=== PATIENT | male | born 1965 | race Caucasian/White ===

== ENCOUNTER 2024-06-08 11:08 | Emergency (ER) | payer OTHER, SELFPAY ==
--- NOTE | ~2024-06-08 | XR_ITS ---
EXAMINATION: XR ANKLE, RIGHT CLINICAL INFORMATION: fall. fracture? COMPARISON: None available. TECHNIQUE: AP, lateral, and mortise views of the right ankle. FINDINGS: No acute cortical disruption or malalignment. No lytic or blastic lesions. No gross joint effusion. No subcutaneous emphysema. XR/XR ankle RT 2V IMPRESSION: No acute fracture or dislocation. Electronically signed by: Hector Torres MD 06/08/2024 01:39 PM EST
--- NOTE | ~2024-06-08 | XR_ITS ---
EXAMINATION: XR FOOT, RIGHT CLINICAL INFORMATION: Foot fracture COMPARISON: None available. TECHNIQUE: AP, lateral, and oblique views of the right foot. FINDINGS: No acute cortical disruption or malalignment. No lytic or blastic lesions. No subcutaneous emphysema. Sclerosis and asymmetric joint space narrowing involving the first tarsometatarsal joint.. XR/XR foot RT 2V IMPRESSION: No acute fracture or dislocation. Electronically signed by: Hector Torres MD 06/08/2024 01:40 PM EST
[2024-06-08 11:11] VITALS: BP 152/80; PULSE 84; RESP 20; TEMP 36.7; O2SAT 98; BMI 26.8
--- NOTE | 2024-06-08 11:16 | ED.GENADULT ---
HPI - General Adult General Chief complaint: Extremity Injury, Lower Stated complaint: R foot injury Time Seen by Provider: 06/08/24 11:55 Source: patient and RN notes reviewed Mode of arrival: ambulatory Limitations: no limitations History of Present Illness ED Provider: Della Ratliff PA-C HPI narrative: This is a 59-year-old male who presents emergency department with complaints of right foot and ankle pain. Patient states that yesterday while he was running up concrete steps, his foot came down onto the step and he felt pain in his right foot. He denies falling to the ground. Did not hit his head. He is not on anticoagulation. He states that he is unable to fully bear weight on his right foot secondary to pain. Denies injuring this foot in the past. No medical problems. He took Tylenol this morning, which provided him with minimal relief. No other complaints or concerns at this time. MD complaint: Right foot pain Onset (ago): day(s) Location: lower extremity Radiation: non-radiation Severity: moderate Quality: aching Pain Consistency: constant Relieving factors: none Exacerbating factors: none Associated symptoms: denies other symptoms Related Data Previous Rx's ?Medication ?Instructions ?Recorded acetaminophen 500 mg tablet 1,000 mg (2 x 500 mg) PO Q8H PRN 06/08/24 (Tylenol Extra Strength) pain #30 tabs ibuprofen 600 mg tablet 600 mg PO Q6H PRN pain #30 tabs 06/08/24 Allergies Allergy/AdvReac Type Severity Reaction Status Date / Time No Known Allergies Allergy Verified 06/08/24 11:13 [No Known Allergies*] Review of Systems Review of Systems: Yes all other systems are reviewed and are negative [facility] Social History Social History Advance Directives: No Advance Directives Information Provided: No Do you have a plan to hurt others: No Plan Physical Exam ED Vital Signs: Vital Signs - 24 hr 06/08/24 11:11 06/08/24 12:35 06/08/24 13:31 Temperature 98.0 F 98.3 F Pulse Rate 84 68 74 Respiratory Rate 20 16 18 Blood Pressure 152/80 H 146/89 H 129/63 Pulse Oximetry 98 98 97 Oxygen Delivery Method Room Air Room Air Room Air 06/08/24 16:03 Temperature 0 F L Pulse Rate 74 Respiratory Rate 18 Blood Pressure 129/63 Pulse Oximetry 97 Oxygen Delivery Method Room Air BMI result Body Mass Index 26.8 Extrem Other: Right foot, with tenderness palpation along the 1st metatarsal. Right great toe with tenderness palpation, decreased range of motion secondary to pain. Capillary refill less than 2 seconds. Sensation intact. Dried blood noted to the distal phalange. Course Course Course Narrative: RmE: 59-year-old male presents to ED for right foot pain. Patient states yesterday he twisted on some concrete ever since then has had pain in right foot. Positive for right foot swelling. X-rays ordered. Reevaluation(s) Reevaluation #1: Xray without findings, however noted to have Sclerosis and asymmetric joint space narrowing involving the first tarsometatarsal joint. Given pain and inflammation in this area, I consulted ortho PA, Kolby Chow. Will place in short posterior splint, given crutches and advised to f/u with ortho outpatient. Pt has been sleeping in ED, pain managed and he appears comfortable, d/c on tylenol/motrin, given strict return precautions, stable for d.c. Medications Administered Discontinued Medications Generic Name Dose Route Start Last Admin Trade Name Freq PRN Reason Stop Dose Admin Diphtheria/Tetanus/Acell Pertussis 0.5 ml 06/08/24 15:39 06/08/24 15:55 Diphth,Pertus(Acell),Tet Adult 0.5 Ml Syringe IM 06/08/24 15:40 0.5 ml .ONCE ONE Administration Ketorolac Tromethamine 30 mg 06/08/24 12:52 06/08/24 12:57 Ketorolac Tromethamine 30 Mg/Ml Vial IM 06/08/24 12:53 30 mg ONCE ONE Administration Procedures Orthopedic Splinting/Casting Injury #1: Side: right Lower Extremity Injury Location: lower leg, ankle and foot Lower Extremity Immobilizer: posterior splint Other Orthopedic Equipment: crutches Medical Decision Making Medical Decision Making MDM Narrative: This is a 59-year-old male who presents emergency department with complaints of right foot pain status post mechanical fall which occurred last night. On arrival, patient hypertensive at 152/80, likely secondary to pain. All other vital signs within normal limits. Patient has tenderness palpation along the 1st metatarsal, with edema noted. He does have tenderness to palpation along the 1st MTP as well. Differential diagnoses include fracture, contusion, sprain, strain. There is dried blood noted to the distal phalange, foot was soaked in saline and Betadine for evaluation of questionable wound. No obvious mood noted. He was wearing shoes at the time. Denies head strike or LOC. X-ray was ordered. Patient medicated at home with Tylenol however patient medicated with Toradol 30 mg IM. He is not on anticoagulation. Differential Diagnosis Differential Diagnoses: The differential diagnosis associated with the presentation includes See above Consult Healthcare Provider Management of the patient was discussed with: Clothes Model see course Radiology Impression Discussion of test interpretation with radiology: I have reviewed the radiologist's reading. Radiologist Impression: XR/XR ankle RT 2V IMPRESSION: No acute fracture or dislocation. Electronically signed by: Hector Torres MD 06/08/2024 01:39 PM EST RP Dictated By: Hector Norris MD RDER #: [id number] XR/XR foot RT 2V IMPRESSION: No acute fracture or dislocation. Electronically signed by: Hector Torres MD 06/08/2024 01:40 PM EST RP Dictated By: Hector Norris MD Discharge Plan Discharge Clinical Impression: Foot pain, right Patient Disposition: Home, Self-Care Instructions: Foot Contusion (ED), Arthralgia (ED) Additional Instructions: You were seen in the emergency department due to foot pain. Your x-ray does not show any obvious fracture however there is some concern for bony abnormality in your foot, therefore we placed you in a splint. Do not place any weight on your foot as this may cause further damage to your foot. Please keep your foot and splint until you follow-up with the orthopedic team. Do not get splint wet. Please alternate between ibuprofen and Tylenol as needed for pain. Keep your foot elevated. Call the orthopedic team tomorrow to make an appointment. If any new or worsening symptoms occur including but not limited to discoloration to your toes, numbness or tingling into your toes, worsening pain, please seek emergent care Prescriptions: New ibuprofen 600 mg tablet 600 mg PO Q6H PRN (Reason: pain) Qty: 30 0RF acetaminophen [Tylenol Extra Strength] 500 mg tablet 1,000 mg PO Q8H PRN (Reason: pain) Qty: 30 0RF [place]: [facility] [place] [facility] [place] Group] Interventions: ED Discharge Assessment Last Done: 06/08/24 16:03 Discharge Date/Time: 06/08/24 16:19 Print Language: German
[2024-06-08 12:35] VITALS: BP 146/89; PULSE 68; RESP 16; TEMP 36.8; O2SAT 98
[2024-06-08] MEDS: Ketorolac Tromethamine 30 MG/ML VIAL IM (12:57)
[2024-06-08 13:31] VITALS: BP 129/63; PULSE 74; RESP 18; O2SAT 97
--- NOTE | 2024-06-08 13:33 | PC.NURSE ---
Pt assisted into stretcher, right foot elevated. Iodine soak completed.
--- NOTE | 2024-06-08 15:49 | PC.NURSE ---
Della [facility] at bedside applying short post splint to right leg
[2024-06-08] MEDS: Diphth,Pertus(ACell),Tet Adult 0.5 ML SYRINGE IM (15:55)
[2024-06-08 16:03] VITALS: BP 129/63; PULSE 74; RESP 18; TEMP -17.7; TEMP 0; O2SAT 97
== END 2024-06-08 16:19 | disposition home or self-care (01) ==
PROVIDERS: Emergency Provider Emergency Medicine; PCP Nurse Practitioner Family
DX: S99.911A Unspecified injury of right ankle, initial encounter (principal); M79.671 Pain in right foot; X50.1XXA Overexertion from prolonged static or awkward postures, initial encounter; Y93.9 Activity, unspecified; Y92.89 Other specified places as the place of occurrence of the external cause; Y99.8 Other external cause status; Z23 Encounter for immunization
CPT/HCPCS: 29515; 73600; 73620; 90471; 90715; 96372; 99284; J1885

== ENCOUNTER → 2024-06-08 11:15 | Outpatient (BNV) | payer OTHER, SELFPAY | PROVIDERS: Emergency Provider Emergency Medicine; PCP Nurse Practitioner Family; Visit Provider Radiology Diagnostic Radiology | DX: M79.671 Pain in right foot (principal); M25.571 Pain in right ankle and joints of right foot | CPT/HCPCS: 73600; 73620 ==